=== PATIENT | female | born 1960 | race Caucasian/White ===

== ENCOUNTER 2017-01-23 18:14 | Emergency (ER) | payer OTHER ==
[2017-01-23 18:31] VITALS: PULSE 73; RESP 16; TEMP 98.1; O2SAT 98
[2017-01-23] MEDS ORDERED: HYDROCOD/APAP 5/325 PREPACK#6 BTL TAKEHOME ONE (18:50)
--- NOTE | 2017-01-23 18:50 | EDPHY ---
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 She is not entirely sure how she landed. She noted a sudden onset of pain over the distal left forearm. No pain in the hand, anatomic snuffbox or left elbow. No pain or injury elsewhere. She did not strike her head or lose consciousness. Pain is worse with palpation or movement. Unable to fully bend the wrist due to pain. No other associated complaints or modifying factors. PRIOR ORTHO INJURIES: None ESTABLISHED ORTHOPEDIST: none REVIEW OF SYSTEMS: Ten systems reviewed and are negative unless otherwise noted in the HPI EXAMINATION General Appearance: Alert, no distress Head: normocephalic, atraumatic Neck: Normal inspection. No bony tenderness. Painless range of motion Respiratory: No dyspnea or retractions. No distress Cardiovascular: Pulses normal throughout. symmetric radial pulses at 2+. Brisk cap refill In all 10 fingers Back: non-tender, no bony abnormalities Neurological: A&O, sensory symmetric, strength symmetric. Strength not tested on the left wrist due to pain. Skin: Warm and dry, no rash Extremities: Tenderness to palpation of the left distal forearm Psychiatric: Mood and affect normal DIFFERENTIAL DIAGNOSES: Including but not limited to fracture, fracture dislocation, sprain, strain, contusion, hematoma MDM: 6:45 p.m. distal radius fracture with impaction and minimal displacement. I do not feel she would benefit from an attempted reduction here. She is neurovascular intact distal to the injury. Will place her in a splint, sling and discharge home with pain medications and care instructions. She is to follow up with Orthopedics tomorrow or Friday at the latest. We discussed return to the emergency department for any numbness, tingling, weakness or worsening pain. return to the ER if unable to see Orthopedics by Friday as well. She is comfortable with this plan and discharged home in stable condition. ED Precautions: Worsening pain. Erythema, edema, cyanosis, pallor, paresthesia or anesthesia. SUPERVISION: Shared visit. (Christopher Lewis) Medical Decision Making: PHYSICIAN DOCUMENTATION: The patient was evaluated and managed by the [facility] and myself. I have reviewed the chart and agree with the findings and plan of care as documented. In addition, I examined the patient myself at 1910. History confirmed as slipped and fell at work. Physical findings as follows: Distal neurovascular intact. Patient declined reviewing x-rays but I showed them to her . Procedure: Splint placement. A left forearm Ortho Glass sugar-tong splint was applied. After application of the splint I returned and re-examined the patient at 7:10 p.m.. The splint was adequately immobilizing the joint and distal to the splint the patient's circulation and sensation was intact. I am the secondary supervising physician. (Juan David Holden) - Objective Vital Signs: Initial Vital Signs Temperature (C) 98.1 F 01/23/17 18:29 Heart Rate 73 01/23/17 18:29 Respiratory Rate 16 01/23/17 18:29 O2 Sat (%) 98 01/23/17 18:29 O2 Delivery Mode Room Air Allergies/Adverse Reactions: No Known Allergies Allergy (Unverified 01/23/17 18:28) Home Medications: Medication Instructions Recorded Hydrocodone/APAP 5/325 [[place] 1 - 2 tab PO Q4H PRN #15 tab 01/23/17 5/325 (*)] Levothyroxine 01/23/17 Medications Given: Discontinued Medications Hydrocodone Bitart/Acetaminophen ([place] 5/325mg Prepack#6) 1 btl [facility] Stop: 01/23/17 18:51 Last Admin: 01/23/17 19:05 Dose: 1 btl Departure - Departure Disposition: Home, Routine, Self-Care Clinical Impression: Distal radius fracture, left Condition: Good Instructions: Hydrocodone/Acetaminophen (By mouth), Arm Fracture in Adults (ED) Additional Instructions: follow-up with Orthopedics tomorrow or Friday for definitive care. Return to the ER for worsening pain, numbness, tingling, wrist drop Referrals: Patient,NotPresent [Unknown] - As per Instructions Enzo Crisostomo MD [Medical Doctor] - As per Instructions Prescriptions: Hydrocodone/APAP 5/325 [[place] 5/325 (*)] 1 - 2 tab PO Q4H PRN #15 tab PRN Reason: Pain, Moderate
[2017-01-23] MEDS ORDERED: IBUPROFEN 600 MG TAB PO ONE (19:03)
== END 2017-01-23 19:10 | disposition home or self-care (01) ==
DX: S52.592A Other fractures of lower end of left radius, initial encounter for closed fracture (principal); W01.0XXA Fall on same level from slipping, tripping and stumbling without subsequent striking against object, initial encounter; Y92.69 Other specified industrial and construction area as the place of occurrence of the external cause; Y93.89 Activity, other specified
CPT/HCPCS: A4565